=== PATIENT | male | born 1955 | race Caucasian/White ===

== ENCOUNTER 2017-05-01 06:50 | Day surgery (SDC) | payer BC ==
[~2017-05-01] VITALS: Ht 188 cm; Wt 81.6 kg
--- NOTE | ~2017-05-01 | OP ---
PATIENT NAME: TIBURCIO VALENTINO MEDICAL RECORD: [id number] :59 [facility] DATE: SURGEON: GRACIA BURNHAM MD DATE OF OPERATION: 05/01/2017 PREOPERATIVE DIAGNOSES: Chronic pansinusitis, septal deviation, turbinate hypertrophy, and nasal obstruction. POSTOPERATIVE DIAGNOSES: Chronic pansinusitis, septal deviation, turbinate hypertrophy, and nasal obstruction. PROCEDURE: 1. Septoplasty. 2. Bilateral ethmoidectomy. 3. Bilateral middle meatal antrostomy. 4. Right sphenoidotomy. 5. Bilateral inferior turbinate reduction. SURGEON: Gracia Burnham MD ANESTHESIA: General orotracheal. BLOOD LOSS: 10 cc. SPECIMENS: Cultures from the right ethmoid cavity and maxillary sinus and tissue from the right ethmoid cavity for path. NASAL PACKING: Oakley splints bilaterally. COMPLICATIONS: None. DISPOSITION: Recovery stable. DESCRIPTION OF PROCEDURE: He was brought to the operating room and placed in supine position, sedated and intubated by anesthesia. The table was turned 90 degrees. He had been decongested with Afrin preoperatively. Both sides of the nose were examined using a headlight and nasal speculum. The inferior turbinates, septum, lateral nasal wall, uncinate, and middle turbinates were injected with a total of 2 cc of 1% lidocaine 1:100,000 epinephrine and 3 Afrin pledgets were placed on the right and 2 on the left. He was positioned, prepped and draped in usual sterile fashion for nasal surgery. All the Afrin pledgets were removed from the right side of the nose first and the right sphenoid was examined. He had some right septal deviation posteriorly. The inferior and middle turbinate were lateralized gently with a freer. The superior turbinate was identified as well as the recess for the sphenoid ostia. This was entered with a straight #7 suction and then a straight #9 suction. It was really wide open. There was no drainage in there, no fluid or purulence and the mucosa of the sphenoid sinus looked relatively normal. The suction was placed to the back of the sphenoid and it was really clear and opened nicely. The middle turbinate was then medialized with a freer. The uncinate was fractured anteriorly with a ball tip probe and a microdebrider was used to take down the uncinate and open up the maxillary sinus. Large curved Allis and suction was inserted into the sinus, was suctioned and a little bit of saline was put in there to suction out and that was placed in culture tubes. The ethmoid cavity was entered inferomedially, took this down posteriorly all the way through the grand lamella OPERATIVE REPORT [id number] CHELSYTIBURCIO and all the ethmoid cavities were opened. There was some mucosal thickening, patchy throughout there, but no purulence or obvious large polyps. Some of this tissue from the area of the ethmoid bulla and the maxillary ostia were sent, the tissue was sent for path as well. The left side was then addressed. The middle turbinate was medialized with a freer. The uncinate was fractured anteriorly, taken down with a microdebrider. The maxillary ostia was opened up and a curved olive tip suction was inserted into the sinus and suctioned out. There was some mucosal thickening, really no purulence in the sinus. Ethmoid cavity was entered inferomedially and it was taken down posteriorly through the ethmoid bulla as well and grand lamella into the posterior ethmoid cavity, opened nicely with almost no bleeding. Then, a curved olive tip suction was used to irrigate repeatedly both maxillary and ethmoid cavities with 30 cc syringe with saline. This was done repeatedly to rinse them out completely. The sinuses were examined with the angled scope to make sure there was no large cyst or retained material in there. They were was nice and clean. The inferior turbinates were then medialized, the inferior redundant portion was taken down with a Gruenwald and suction cautery was used to stop any bleeding. They were both outfractured with a Vienna elevator. A left Oli incision was made. The ipsilateral mucoperichondrial flap was elevated over a large bony spur on the left side of the septum. The bony cartilaginous junction was disarticulated as well as the cartilaginous septum from the maxillary spine and some relaxing incisions were made in the cartilage to allow the anterior septum to fall to the midline. Posterior mucoperichondrial flap was elevated on the opposite side to isolate the bony spur. Scissors were used to make a cut above and below that spur and it was removed. The septum was then straightened in midline. Interrupted 4-0 chromic was used to close the [place] incision. Both the inferior turbinates were outfractured with a Vienna elevator. The nasopharynx was suctioned. The ethmoid cavities were carefully examined and Oakley splints were placed bilaterally with mupirocin ointment and sutured through the anterior membranous septum with a 2-0 Prolene on a Peter needle. He was awakened, extubated, and transported to recovery in good condition. No complications. TRANSINT:[id number] Voice Confirmation ID: [id number] DOCUMENT ID: [id number] GRACIA BURNHAM MD CC: [id number] DICTATION DATE: 05/01/17 1155 [employer]ER: 05/01/17 1224 [facility] [address] [id number]
[~2017-05-01 06:50] MED LIST: AZELASTINE137 MCG/0. NASAL; BAYER CHEWABLE81 MG PO; FLOMAX0.4 MG PO; FLUTICASONE PRO16 GM NASAL; HYDROCODONE-APA1 TAB PO; SINGULAIR10 MG PO
[2017-05-01 07:29] VITALS: BP 151/90; Ht 188 cm; Wt 81.6 kg
== END 2017-05-01 13:31 | disposition home or self-care (01) ==
LOC: D.OPS 06:50
DX: J32.4 Chronic pansinusitis (principal); J34.2 Deviated nasal septum; J34.3 Hypertrophy of nasal turbinates; J34.89 Other specified disorders of nose and nasal sinuses; B19.20 Unspecified viral hepatitis C without hepatic coma; Z01.812 Encounter for preprocedural laboratory examination

== ENCOUNTER 2019-05-13 09:17 | Day surgery (SDC) | payer BC ==
[~2019-05-13] VITALS: Ht 188 cm; Wt 109.3 kg
--- NOTE | ~2019-05-13 | OP ---
PATIENT NAME: TIBURCIO VALENTINO MEDICAL RECORD: [id number] :59 LOCATION:D[facility] ADMISSION DATE: SURGEON: GRACIA BURNHAM MD DATE OF OPERATION: 05/13/2019 PREOPERATIVE DIAGNOSIS: Left neck mass, unknown primary squamous cell carcinoma. POSTOPERATIVE DIAGNOSIS: Left neck mass, unknown primary squamous cell carcinoma. PROCEDURE: Direct laryngoscopy with multiple directed biopsies, cervical esophagoscopy. SURGEON: Gracia Burnham MD ANESTHESIA: General orotracheal. BLOOD LOSS: 2 cc. SPECIMENS: Multiple biopsies, both sides of the nasopharynx. Multiple biopsies, both sides of the base of the tongue. Biopsy of left hypopharynx. COMPLICATIONS: None. DISPOSITION: Recovery stable. FINDINGS: Really, the entire endoscopy was negative. The base of the tongue very close to the attachment of the glossopharyngeal arch was a little bit friable and started bleeding with manipulation of the scope, I would not really say it looked like any dysplasia, but I removed that entire granular friable area with multiple 4 mm cup forceps biopsies along with the left base of the tongue biopsies. The left hypopharynx at the apex, the mucosa looked normal, but it would almost had a nodular submucosal appearance that looked a little different than the other side and the surrounding mucosa that I biopsied that was right at the apex and deep in the lateral aspect of the left hypopharynx. Again, not particularly suspicious, but just biopsied because there was no primary found. DESCRIPTION OF PROCEDURE: The patient was brought to the operating room and placed in supine position, sedated and intubated by anesthesia. The table was turned 90 degrees. Head drape was applied. He was positioned for endoscopy. His nose had been decongested with Afrin preoperatively. I had examined him in the office with endoscopic nasal exam and nasopharynx all that was normal. I examined the oral cavity, floor of the mouth, buccal mucosa, upper and lower gingiva buccal sulcus and palpated the base of the tongue, pharyngeal cruz, very thoroughly and then I inserted a Karin-Anibal mouth gag and elevated that on a towel on the patient's chest. Again, I examined everything visually with a mirror and then placed a red rubber catheter through the right side of the nose into the pharynx and grasped with a tonsil clamp to retract the soft palate. I used a mirror to examine the nasopharynx and again, completely really clean symmetric nasopharynx, no masses, no fullness. Fossa were clearly visible through the nose on both sides and I took 4 large biopsies, 2 on each side with a 4 mm cup forceps high and low in the nasopharynx on both sides. There was a little bleeding with that, but not much. The red rubber catheter was let down OPERATIVE REPORT [id number] TIBURCIO VALENTINO and removed and then at the glossopharyngeal arch on the left side just were we attached the base of tongue with retraction from the mouth gag and the manipulation, there was a little area that was not quite friable. It was bleeding there, but did not look particularly abnormal for that area, but I took 4 mm upbiting cup forceps and 3 biopsies removed in that entire area, all that tissue for specimen and I used suction cautery to stop little bleeding there. Then, I removed the Karin-Anibal mouth gag and used a plastic upper tooth guard to protect the upper teeth using a Kleinsasser J laryngoscope to evaluate the lateral pharyngeal cruz, posterior pharyngeal wall, the vallecula, base of tongue, supraglottic larynx, epiglottis, AE folds, arytenoids, postcricoid area and the piriforms, everything looked normal except for the apex of the left hypopharynx, little submucosal nodular area and I used a 4-mm straight cup forceps to take some biopsies at the apex and the left lateral lower hypopharynx and the pyriform there that did not bleed really any at all. Once that was done, I used the cervical esophagoscope into the cervical esophagus down to 30 cm close to the upper teeth in the cervical and mid esophagus completely clean, I remove that. No biopsies were taken. Then, again, I inserted the Kleinsasser J. laryngoscope and took 2-3 deep biopsies of both sides of the base of the tongue covering the entire base of the tongue and deep biopsies. No significant bleeding. I removed the scope. Pharynx was suctioned, really no significant bleeding. He was awakened, extubated, and transported to recovery in good condition. No complications. TRANSINT:[id number] Voice Confirmation ID: [id number] DOCUMENT ID: [id number] GRACIA BURNHAM MD CC: [id number] DICTATION DATE: 05/13/191426 [employer]: 05/14/19 0128 [facility] [place] 05/13/19 [facility] [address] [place] [address]
--- NOTE | ~2019-05-13 | HP ---
PATIENT: TIBURCIO VALENTINO MEDICAL RECORD: [id number] ACCOUNT: [id number] LOCATION:[facility] : 59 ADMISSION DATE: 05/13/19 PCP: MARIO KEITA MD HISTORY AND PHYSICAL EXAMINATION HISTORY: Mr. 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 He was referred to me for evaluation. Exam is negative. So at this point, he is into unknown primary. He is being admitted for direct laryngoscopy and biopsies. He has a history of smoking, but quit 15 years ago. CURRENT MEDICATIONS: Include Flomax, Singulair, has some baclofen, fluticasone, diclofenac. ALLERGIES: PENICILLIN. PHYSICAL EXAMINATION: GENERAL: He is healthy appearing. FACE: Normal, symmetric, no lesions. EYES: Sclerae and conjunctivae are normal. EARS: Canals and TMs are normal. NOSE: No mass, polyps or drainage. ORAL CAVITY AND OROPHARYNX: Tongue protrudes in midline. Pharynx is all normal including palpation of the base of tongue and tonsillar fossa. He is status post tonsillectomy. NECK: He has a 5-cm left upper neck mass, apparently that was 2 nodes that have kind of matted together based on the history I was given. Flexible laryngoscopy reveals nasal cavity on the left side is all normal. Nasopharynx is normal. The hypopharynx, vallecula, base of tongue, supraglottic larynx, piriforms, post-cricoid area all unremarkable. He has got normal cords, normal cord mobility. Subglottis and upper trachea are normal. IMPRESSION: Left upper neck mass, squamous cell carcinoma, unknown primary. PLAN: Direct laryngoscopy, cervical esophagoscopy, and directed biopsies of nasopharynx, base of tongue, tonsillar fossas, and any other lesions that are seen. TRANSINT:[id number] Voice Confirmation ID: [id number] DOCUMENT ID: [id number] GRACIA BULL MD CC: [id number] DICTATION DATE: 05/09/1958 DRIVER SALESMAN: 05/09/19 1025 [facility] [address] [place] [address]
[2019-05-13 10:47] VITALS: BP 125/83; Ht 188 cm; Wt 109.3 kg
== END 2019-05-13 15:40 | disposition home or self-care (01) ==
LOC: D.OPS 09:17 → D.PAN 11:45 → D.OPS 12:15 → D.PAN 15:30 → D.OPS 15:40
PROVIDERS: ATTEND Otolaryngology
DX: R22.1 Localized swelling, mass and lump, neck (principal)